=== PATIENT | male | born 1960 | race Caucasian/White ===

== ENCOUNTER 2018-01-29 06:59 | Day surgery (SDC) | payer OTHER ==
[~2018-01-29] VITALS: Ht 177.8 cm; Wt 79.5 kg
[2018-01-29] MEDS ORDERED: VENL75TA2 PO (07:05)
[2018-01-29] MEDS ORDERED: GLUCAGON FOR INJ 1 MG VIAL (J1610) IV STA (08:26)
[2018-01-29] MEDS ORDERED: EFFEXOR 150 MG PO (12:36)
--- NOTE | 2018-01-29 15:49 | CR.PDOC ---
General Date of Consultation: Jan 29, 2018 Referring Provider: Todd Ramírez M.D. Attending Physician: FORTUNATO JACOBS MD Consultation GI CONSULT NOTE Reason for consult: food impaction HPI: Mr. King is a 57 yo M with PMH of GERD presented to ER for dysphagia that started last night. He states he has had intermittent dysphagia for the past 15 years, and reportedly underwent an EGD about 10 years ago which was negative. He has been managing this symptomatically and avoiding thick foods, meats, and breads. Last night however, he was out in a restaurant and ate steak and salad, which he felt get stuck in his upper throat after the first few bites. He attempted inducing vomiting, but did not feel better after emesis. He "tried to wait it out," but symptoms persisted into this morning, for which he presented to the ER. He now has been vomiting to both solid and liquid intake, and was given glucagon and Poly tawnya in the ER to no avail. He has no other complaints besides throat pressure. Pertinent negative GI symptoms: Patient denies changes in bowel, loss of appetite, early satiety or unintentio nal weight loss. No history of hematemesis or abdominal pain. Review of Systems: GI: as stated above CVS: No chest pain, No palpitations, No leg swelling. RS: No Shortness of breath, No Wheezing, no cough IMMIGRATION PARALEGAL: No dizziness, No motor weakness, No sensory problems Hematology: No bruising, No gum bleeding, Musculoskeletal: No joint pain, ambulating well. Skin: No rash : No hematuria, No burning sensation of the urine ENT: No ear discharge/ pain, No dysphagia. Eyes: No photophobia. Jaundice Home medications: reviewed. Antithrombotic agents - none Medical h/o: As above. Surgical h/o: umbilical hernia repair Social h/o: Alcohol-frequently, ~10 drinks/week, smoking-denies, IVDA/ drugs- actively uses cocaine, no IV drugs Family h/o of GI cancers - None Prior Endoscopies: --- EGD: per pt, 10 yrs ago was negative --- Colonoscopy: n/a Exam: Vitals: reviewed General: Alert and oriented x 3, not in distress HEENT: NO pallor, no icterus. Normal oropharynx, no visible obstruction or lesion, no cervical lymph nodes. Chest: symmetric with bilateral clear air entry, CVS: S1, S2 heard, normal, no murmurs . Abdomen: non-distended, soft, nontender to palpation, no palpable masses, bowel sounds heard. Rectal exam: Deferred Extremities: no pedal edema, pulses palpable IMMIGRATION PARALEGAL: no focal motor or sensory deficits. Moves all extremities Skin: no rash. Labs: none Imaging: none Impression: -- Dysphagia with food impaction -- Differentials includes esophageal stricture, EOE vs GERD with esophagitis vs esophageal motility disorder vs esophageal web Recommendations: -- Keep patient NPO. -- Give IVF while NPO, fluids per ER -- Will perform urgent EGD today in OR with possible intubation. Benefits and risks (including bleeding, infection, perforation, pain) discussed with pt. Pt agreeable to plan and signed informed consent for EGD -- Plan to send home after procedure & PACU recovery -- Patient educated about the test results, possible differential diagnoses and All questions answered. Plan of care discussed with patient and primary team. Patient verbalized understanding and agreed with the plan. Vital Signs/I&O Vital Signs Date Time Temp Pulse Resp B/P (MAP) Pulse Ox O2 Delivery O2 Flow Rate FiO2 01/29/18 13:35 97.1 48 20 139/86 (103) 95 Room Air Allergies Coded Allergies: No Known Allergies (Verified Allergy, Unknown, 10/30/06) Home Medications Scheduled [Effexor Er 150MG Tab] , 50 MG PO DAILY, (Reported) PT HAS BEEN CUTTING ER TAB, ADVISED NOT RECOMMENDED DUE TO BEING ER GME ATTESTATION GME ATTESTATION My faculty preceptor for this patient encounter was physically present during the encounter and was fully available. All aspects of the patient interview, examination, medical decision making process, and medical care plan development were reviewed and approved by the faculty preceptor. The faculty preceptor is aware and concurs with the plan as stated in the body of this note and will attest to such by his/her cosignature. KIRA BRIDGES DO Jan 29, 2018 15:49 FORTUNATO JACOBS MD Jan 29, 2018 16:02
--- NOTE | 2018-01-29 15:49 | CR.PDOC ---
General Date of Consultation: Jan 29, 2018 Referring Provider: Todd Ramírez M.D. Attending Physician: FORTUNATO JACOBS MD Consultation Error.. Please see the other document done by Resident physician. Allergies Coded Allergies: No Known Allergies (Verified Allergy, Unknown, 10/30/06) Home Medications Scheduled [Effexor Er 150MG Tab] , 50 MG PO DAILY, (Reported) PT HAS BEEN CUTTING ER TAB, ADVISED NOT RECOMMENDED DUE TO BEING ER FORTUNATO JACOBS MD Jan 29, 2018 15:49
[2018-01-29] MEDS ORDERED: ONDANSETRON 4MG/2ML VIAL (J2405) As Ordered ONE (16:26)
[2018-01-29] MEDS ORDERED: fentaNYL 250 MCG/5 ML INJECTION (J3010) As Ordered ONE (16:26)
[2018-01-29] MEDS ORDERED: METOCLOPRAMIDE INJ 10MG/2ML VIAL (J2765) As Ordered ONE (16:26)
[2018-01-29] MEDS ORDERED: LIDOCAINE 2% INJ 100 MG/5 ML SDV (FOR ANES.) As Ordered ONE (16:26)
[2018-01-29] MEDS ORDERED: SUCCINYLCHOLINE 100 MG/5 ML SYRINGE (J0330) As Ordered ONE (16:26)
[2018-01-29] MEDS ORDERED: PROPOFOL 200 MG/20 ML VIAL As Ordered ONE (16:26)
[2018-01-29] MEDS ORDERED: MIDAZOLAM INJ 2 MG/2 ML VIAL (J2250) As Ordered ONE (16:27)
--- NOTE | 2018-01-29 16:44 | ROOR ---
Patient Name: Jeovany King Procedure Date: 01/29/2018 3:07 PM Date of : 1960 Age: 57 Room: Main OR Gender: Male Note Status: Finalized Procedure: Upper GI endoscopy Indications: Dysphagia, Removal of foreign body in the esophagus, Foreign body in the esophagus Providers: Thomas Dempsey MD Referring MD: 1. No Referring Physician 1. No Referring Physician, Admin. Requesting Provider: Medicines: Monitored Anesthesia Care Complications: No immediate complications. Procedure: Pre-Anesthesia Assessment: - Prior to the procedure, a History and Physical was performed, and patient medications and allergies were reviewed. The patient is competent. The risks and benefits of the procedure and the sedation options and risks were discussed with the patient. All questions were answered and informed consent was obtained. Patient identification and proposed procedure were verified by the physician, the nurse and the anesthesiologist in the procedure room. Mental Status Examination: alert and oriented. Airway Examination: normal oropharyngeal airway and neck mobility. Respiratory Examination: clear to auscultation. CV Examination: normal. Prophylactic Antibiotics: The patient does not require prophylactic antibiotics. Prior Anticoagulants: The patient has taken no previous anticoagulant or antiplatelet agents. ASA Grade Assessment: II - A patient with mild systemic disease. After reviewing the risks and benefits, the patient was deemed in satisfactory condition to undergo the procedure. The anesthesia plan was to use monitored anesthesia care (MAC). Immediately prior to administration of medications, the patient was re-assessed for adequacy to receive sedatives. The heart rate, respiratory rate, oxygen saturations, blood pressure, adequacy of pulmonary ventilation, and response to care were monitored throughout the procedure. The physical status of the patient was re-assessed after the procedure. The Endoscope was introduced through the mouth, and advanced to the second part of duodenum. The upper GI endoscopy was accomplished without difficulty. The patient tolerated the procedure well. Findings: Food was found in the lower third of the esophagus. Removal of food was accomplished. Mucosal changes including longitudinal furrows and white plaques were found in the entire esophagus. Biopsies were obtained from the proximal and distal esophagus with cold forceps for histology of suspected eosinophilic esophagitis. Verification of patient identification for the specimen was done by the physician and nurse using the patient's name, date and medical record number. Estimated blood loss was minimal. No gross lesions were noted in the entire examined stomach. The duodenal bulb and second portion of the duodenum were normal. Impression: - Food in the lower third of the esophagus. Removal was successful. - Esophageal mucosal changes suggestive of eosinophilic esophagitis. Biopsied. - No gross lesions in the stomach. - Normal duodenal bulb and second portion of the duodenum. Recommendation: - Patient has a contact number available for emergencies. The signs and symptoms of potential delayed complications were discussed with the patient. Return to normal activities tomorrow. Written discharge instructions were provided to the patient. - Full liquid diet for 1 day, then advance as tolerated to resume previous diet. - Continue present medications. 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 - Await pathology results. - Return to GI clinic in [facility] (address [address], [address], [place] [address]) in 4 -- 6 weeks. Please call GI clinic @ [phone] for apppointment date and time. - Return to primary care physician. Thomas Dempsey MD Thomas Dempsey MD 01/29/2018 4:44:26 PM This report has been signed electronically. Number of Addenda: 0 Note Initiated On: 01/29/2018 3:07 PM Estimated Blood Loss: Estimated blood loss was minimal.
[2018-01-29] MEDS ORDERED: LR 1,000 ML IV SCH (17:00)
[2018-01-29] MEDS ORDERED: ONDANSETRON 4MG/2ML VIAL (J2405) IV PRN (17:00)
[2018-01-29] MEDS ORDERED: HYDROMORPHONE HCL 0.5 MG/ 0.5 ML SYRINGE (J1170 PER 1) IV PRN (17:00)
[2018-01-29] MEDS ORDERED: PERCOCET 5MG/325MG TAB PO PRN (17:00)
[2018-01-29] MEDS ORDERED: fentaNYL 100 MCG/2 ML INJECTION (J3010) IV PRN (17:00)
[2018-01-29 17:35] VITALS: BP 110/78
[2018-01-30] MEDS ORDERED: PANTOPRAZOLE 40MG TAB (PROTONIX) PO SCH (09:00)
== END 2018-01-29 17:35 | disposition home or self-care (01) ==
LOC: M ED 06:59 → M SDC 15:20
PROVIDERS: ATTEND Internal Medicine Gastroenterology
DX: T18.128A Food in esophagus causing other injury, initial encounter (principal); K22.8 Other specified diseases of esophagus; R13.10 Dysphagia, unspecified; F32.9 Major depressive disorder, single episode, unspecified; X58.XXXA Exposure to other specified factors, initial encounter; Y92.89 Other specified places as the place of occurrence of the external cause; Y93.89 Activity, other specified; Y99.8 Other external cause status
CPT/HCPCS: 43239; 43247; 88305; 99284; J0330; J1610; J2250; J2405; J2765; J3010

== ENCOUNTER 2018-03-04 01:28 | Emergency (ER) | payer OTHER ==
[~2018-03-04] VITALS: Ht 177.8 cm; Wt 84.1 kg
[2018-03-04 01:28] VITALS: BP 176/82
[~2018-03-04 01:28] MED LIST: EFFEXOR 150 MG PO; VENL75TA2 PO
[2018-03-04] MEDS ORDERED: MORPHINE 10 MG/ML 1ML VIAL (J2270) IM ONE (02:15)
--- NOTE | 2018-03-04 02:31 | REPVR ---
EXAM: CT Head Without Contrast EXAM DATE/TIME: 03/04/2018 1:48 AM CLINICAL HISTORY: 57 years old, male; Pain; Headache; Headache not specified; Additional info: BUSH TECHNIQUE: Axial computed tomography images of the head/brain without contrast. All CT scans at this facility use at least one of these dose optimization techniques: automated exposure control; mA and/or kV adjustment per patient size (includes targeted exams where dose is matched to clinical indication); or iterative reconstruction. COMPARISON: CT IAC W/O CONTRAST 11/20/2012 8:00 AM FINDINGS: Brain: There are periventricular foci of hypodensity, likely representing small vessel ischemic disease in a patient this age. The acuity of the white matter disease is indeterminate. The white-padron differentiation is preserved demonstrating no acute territorial type infarct. There is mild prominence of the frontal sulci, but this is age appropriate. No acute intracranial hemorrhage is seen. No intracranial mass effect. Midline shift: There is no midline shift. Ventricles: No ventriculomegaly. Bones/joints: The calvarium demonstrates no evidence for a depressed fracture. Sinuses: Normal as visualized. No acute sinusitis. Mastoid air cells: No mastoid effusion. Soft tissues: Normal. Vasculature: There is atherosclerotic calcification of the intracranial internal carotid arteries. IMPRESSION: 1. No acute intracranial hemorrhage or acute territorial type infarct. 2. There are periventricular foci of hypodensity, likely representing small vessel ischemic disease in a patient this age. Electronically signed by: Jeovany Sutton On 03/04/2018 02:30:24 AM
== END 2018-03-04 03:28 | disposition home or self-care (01) ==
LOC: M ED 03:28
DX: R51 Headache (principal); F33.9 Major depressive disorder, recurrent, unspecified; Z79.899 Other long term (current) drug therapy
CPT/HCPCS: 70450; 82375; 85652; 96372; 99283; J2270

== ENCOUNTER → 2018-04-01 | Outpatient (CLI) | payer OTHER ==
--- NOTE | 2018-04-01 18:37 | REP ---
MAXILLOFACIAL CT WITHOUT CONTRAST: HISTORY: Acute maxillary sinusitis. A small right Andrey cell is present. The sinuses are clear. The osteomeatal units are patent. The middle and inferior nasal turbinates are partially paradoxical. There is minimal deviation of the nasal septum to the left. A large spur is present arising from the left side of the nasal septum. The nasal septum abuts the left inferior nasal turbinate. The cribriform plate, medial gupta of the orbits and optic canals are intact. The carotid canals form a segment of the posterolateral gupta of the sphenoid sinus. IMPRESSION:There is no acute or chronic sinusitis. Electronically Signed by Eagle Rojas MD 04/01/2018 06:57 P
== END ==
LOC: M RAD 17:08
PROVIDERS: ATTEND Specialist
DX: J34.2 Deviated nasal septum (principal); J34.89 Other specified disorders of nose and nasal sinuses

== ENCOUNTER 2018-07-17 17:33 | Day surgery (SDC) | payer OTHER ==
[~2018-07-17] VITALS: Ht 177.8 cm; Wt 81.8 kg
[2018-07-17] MEDS ORDERED: FAMC250T3 (17:44)
[2018-07-17] MEDS ORDERED: FLUTISP (17:44)
[2018-07-17] MEDS ORDERED: FLUT22IN (17:44)
[2018-07-17] MEDS ORDERED: DEXA5LQ (17:44)
[2018-07-17] MEDS ORDERED: MORPHINE 4 MG/ML 1ML VIAL/SYRINGE (J2270) IV ONE (18:15)
[2018-07-17] MEDS ORDERED: NS 1,000 ML IV SCH (18:15)
[2018-07-17] MEDS ORDERED: ONDANSETRON 4MG/2ML VIAL (J2405) IV ONE (18:15)
[2018-07-17 18:26] LABS: HEMATOCRIT 43.9 % (42.0-52.0); HEMOGLOBIN 14.3 g/dl (13.5-17.5); MEAN CORPUSCULAR HEMOGLOBIN 30.4 pg (27.0-33.0); MEAN CORPUSCULAR HGB CONC 32.6 g/dl (32.0-36.5); MEAN CORPUSCULAR VOLUME 93.2 fl (80.0-96.0); PLATELET COUNT, AUTOMATED 267 10^3/uL (150-450); RED BLOOD COUNT 4.71 10^6/uL (4.30-6.10); WHITE BLOOD COUNT 6.6 10^3/uL (4.0-10.0)
[2018-07-17 18:31] LABS: BLOOD UREA NITROGEN 28 MG/DL (7-18); CALCIUM LEVEL 8.9 MG/DL (8.8-10.2); CARBON DIOXIDE LEVEL 29 MEQ/L (21-32); CHLORIDE LEVEL 107 MEQ/L (98-107); CREATININE FOR GFR 1.21 MG/DL (0.70-1.30); GLOMERULAR FILTRATION RATE > 60.0 (>49); GLUCOSE, FASTING 110 MG/DL (70-100); POTASSIUM SERUM 4.3 MEQ/L (3.5-5.1); SODIUM LEVEL 141 MEQ/L (136-145)
[2018-07-17 18:38] LABS: INR 0.97
[2018-07-17] MEDS ORDERED: ISOVUE-370 76% 100ML VIAL (Q9967) As Ordered ONE (18:40)
--- NOTE | 2018-07-17 19:15 | REPVR ---
EXAM: CT Chest With Contrast EXAM DATE/TIME: 07/17/2018 6:46 PM CLINICAL HISTORY: 58 years old, male; Signs and symptoms; Other: Vomiting blood; Additional info: Esophogeal tear TECHNIQUE: Imaging protocol: Axial computed tomography images of the chest with intravenous contrast. Coronal and sagittal reformatted images were created and reviewed. 3D rendering: MIP reconstructed images were created and reviewed. Radiation optimization: All CT scans at this facility use at least one of these dose optimization techniques: automated exposure control; mA and/or kV adjustment per patient size (includes targeted exams where dose is matched to clinical indication); or iterative reconstruction. Contrast material: ISOVUE 370; Contrast volume: 75 ml; Contrast route: IV; COMPARISON: No relevant prior studies available. FINDINGS: Lungs: Sub-solid nodule anterior basal segment left lower lobe measuring 6.2 mm (series 2 amount image 56). 2 mm pleural-based nodule anterior segment left upper lobe (series 2 image 51). 3.3 mm pleural-based sub-solid nodule anterior segment right upper lobe (series 2 image 44). Esophagus: the esophagus is dilated and contains an air-fluid level. Solid appearing debris noted within the distal esophagus extending through the gastroesophageal junction Pleural space: See Lungs Finding. Heart: Normal. No cardiomegaly. No pericardial effusion. Mediastinum: Moderate size sliding hiatal hernia. Debris noted within the distal esophagus. There is no subcutaneous emphysema noted within the mediastinum to suggest esophageal rupture. Aorta: Normal. No aortic aneurysm. Lymph nodes: Unremarkable. No enlarged lymph nodes. Bones/joints: There are healed or healing rib fractures of the left posterolateral seventh through ninth ribs Soft tissues: Unremarkable. Liver: The liver is low in density. 1 cm area of hypervascularity noted in the medial segment of the left lobe. Kidneys and ureters: Left-sided hydronephrosis versus parapelvic cysts. IMPRESSION: 1. No evidence of subcutaneous emphysema in the mediastinum. No CT findings to suggest esophageal rupture. 2. Air-fluid level noted within the esophagus with hiatal hernia. There is evidence of gastroesophageal reflux. 3. Sub-solid pulmonary nodules bilaterally.Recommend CT at 3-6 months. If stable, then consider CT at 2 years and 4 years. (Chrystal et al., Fleischner Society, 2017) 4. Healed or healing rib fractures of the left posterolateral seventh through ninth ribs 5. 1 cm area of hypervascularity in the medial segment left lobe of the liver. Does not characterize fully. This could represent hemangioma, adenoma or other hypervascular neoplasm. MR might be considered for definitive characterization Electronically signed by: Olive Trinidad On 07/17/2018 19:15:04 PM
[2018-07-17] MEDS ORDERED: MORPHINE 2 MG/ML 1ML SYRINGE (J2270) IV ONE (20:00)
--- NOTE | 2018-07-17 20:17 | ECGEPIP ---
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
[2018-07-17] MEDS ORDERED: SUCCINYLCHOLINE 100 MG/5 ML SYRINGE (J0330) As Ordered ONE (22:00)
[2018-07-17] MEDS ORDERED: PROPOFOL 200 MG/20 ML VIAL As Ordered ONE (22:00)
[2018-07-17] MEDS ORDERED: fentaNYL 100 MCG/2 ML INJECTION (J3010) As Ordered ONE (22:00)
[2018-07-17] MEDS ORDERED: LIDOCAINE 2% INJ 100 MG/5 ML SDV (FOR ANES.) As Ordered ONE (22:00)
[2018-07-17] MEDS ORDERED: MIDAZOLAM INJ 2 MG/2 ML VIAL (J2250) As Ordered ONE (22:00)
[2018-07-17] MEDS ORDERED: dexameTHASONE 4 MG/ML 1ML VIAL (J1100) As Ordered ONE (22:00)
[2018-07-17] MEDS ORDERED: FLON1SPR (22:03)
[2018-07-17] MEDS ORDERED: VENL75CA2 PO (22:03)
[2018-07-17] MEDS ORDERED: FAMC250T3 PO (22:03)
[2018-07-17] MEDS ORDERED: FLUT22IN INH (22:03)
[2018-07-17] MEDS ORDERED: ePHEDrine SULFATE 25 MG/5 ML(5MG/ML) SYRINGE As Ordered ONE (22:15)
--- NOTE | 2018-07-17 22:44 | ROOR ---
Patient Name: Jeovany King Procedure Date: 07/17/2018 10:28 PM Date of : 1960 Age: 58 Gender: Male Note Status: Finalized Procedure: Upper GI endoscopy Indications: Foreign body in the esophagus, Hematemesis, Eosinophilic esophagitis Providers: Facundo BLANKENSHIP MD Referring MD: 3. Emergency Dept 3. Emergency Dept, [facility] BARTH NP, NONI HO MD Requesting Provider: Medicines: Monitored Anesthesia Care Complications: No immediate complications. Procedure: Pre-Anesthesia Assessment: - The heart rate, respiratory rate, oxygen saturations, blood pressure, adequacy of pulmonary ventilation, and response to care were monitored throughout the procedure. The Endoscope was introduced through the mouth, and advanced to the second part of duodenum. The upper GI endoscopy was accomplished without difficulty. The patient tolerated the procedure well. Findings: Food was found in the middle third of the esophagus and in the lower third of the esophagus. Removal of food was accomplished. A non-bleeding mucosal tear that was pre-existing (pre-procedure) was found in the middle third of the esophagus. This measured 20 mm in length. Mucosal changes including ringed esophagus and longitudinal furrows were found in the entire esophagus. Small Hiatal Hernia. The entire examined stomach was normal. The examined duodenum was normal. Impression: - Food in the middle third of the esophagus and in the lower third of the esophagus. Removal was successful. - Mucosal tear in the middle third of the esophagus. - Esophageal mucosal changes consistent with eosinophilic esophagitis. - Small Hiatal Hernia. - Normal stomach. - Normal examined duodenum. Recommendation: - Observe patient's clinical course following today's procedure with therapeutic intervention. - Use Prilosec (omeprazole) 40 mg PO BID. - Use FloVent-2 puffs by mouth twice a day-dry swallow. do not eat/drink for 30 minutes after. - Full liquid diet for 24 hrs, then soft diet. - The most common dietary causes for eosinophilic esophagitis are Dairy, Eggs, Wheat.--avoid these. - Follow up with Dr Dempsey next available appointment for further adjustments of medications. Office will call you in the next few days to schedule a follow up. Facundo Blankenship MD Facundo BLANKENSHIP MD 07/17/2018 10:43:22 PM Electronically signed by Facundo BLANKENSHIP MD Number of Addenda: 0 Note Initiated On: 07/17/2018 10:28 PM Estimated Blood Loss: Estimated blood loss: none.
[2018-07-17] MEDS ORDERED: HYDROMORPHONE HCL 0.5 MG/ 0.5 ML SYRINGE (J1170 PER 1) IV PRN (23:00)
[2018-07-17] MEDS ORDERED: fentaNYL 100 MCG/2 ML INJECTION (J3010) IV PRN (23:00)
[2018-07-17] MEDS ORDERED: LR 1,000 ML IV SCH (23:00)
[2018-07-17] MEDS ORDERED: ONDANSETRON 4MG/2ML VIAL (J2405) IV PRN (23:00)
[2018-07-17 23:40] VITALS: BP 134/79
--- NOTE | 2018-07-18 06:44 | ED PDOC ---
Post-Departure Follow-Up dr kimball faxed formal report of ct chest for fu Pati Miranda MD Jul 18, 2018 06:44
== END 2018-07-17 23:45 | disposition home or self-care (01) ==
LOC: M ED 17:33 → M SDC 21:08
PROVIDERS: ATTEND Internal Medicine Gastroenterology
DX: T18.128A Food in esophagus causing other injury, initial encounter (principal); K22.8 Other specified diseases of esophagus; K92.0 Hematemesis; K20.0 Eosinophilic esophagitis; F32.9 Major depressive disorder, single episode, unspecified; Z79.899 Other long term (current) drug therapy; Y92.008 Other place in unspecified non-institutional (private) residence as the place of occurrence of the external cause
CPT/HCPCS: 43247; 71260; 80048; 85027; 85610; 93005; 96361; 96374; 96375; 96376; 99285; J0330; J1100; J2250; J2270; J2405; J3010; Q9967

== ENCOUNTER → 2018-09-06 | Outpatient (CLI) | payer OTHER ==
[~2018-09-06] MED LIST changes: +DEXA5LQ; +E-Z-GAS II EFFERVESCENT PACKET (SODIUM BICARB./CITRIC ACID/SIMETHICONE) As Ordered ONE; +E-Z-HD 98% w/w 340GM SUSP BTL As Ordered ONE; +E-Z-PAQUE 96% w/w SUSP 176GM BTL As Ordered ONE; +FAMC250T3; +FAMC250T3 PO; +FLON1SPR; +FLUT22IN; +FLUT22IN INH; +FLUTISP; +VENL75CA2 PO
--- NOTE | 2018-09-10 17:29 | REP ---
Esophagram The procedure was performed under the direct supervision of Dr. Ortiz. The images were reviewed with Dr. Ortiz. A single view PA chest x-ray is submitted as a forward air controller/air officer film. The superior mediastinal structures are midline. The heart size is within normal limits. The lungs are clear. There are old healed rib fractures on the left. Liquid barium and gas producing granules were given in the erect position as well as liquid barium in the prone oblique positions in order to perform a double contrast esophagram examination. The oral and pharyngeal stages of deglutition are unremarkable. There are esophageal transport there is a feline esophagus appearance. There is a sliding type hiatal hernia. There is gastroesophageal reflux demonstrated to the level of the thoracic inlet. These findings are consistent with early esophagitis. There is no mariah ulcer identified. There is no stricture identified. 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 There is a sliding type hiatal hernia. There is gastroesophageal reflux demonstrated to the level of the thoracic inlet. These findings are consistent with early esophagitis. There is no mariah ulcer identified. 0.8 minutes of fluoro time was utilized for this procedure. Reviewed by JAMES Mayers 09/06/2018 04:05 P Electronically Signed by Jesse Ortiz MD 09/10/2018 05:20 P
== END ==
LOC: M RAD 07:11
PROVIDERS: ATTEND Internal Medicine Gastroenterology
DX: K20.0 Eosinophilic esophagitis (principal)

== ENCOUNTER → 2018-10-25 | Outpatient (CLI) | payer OTHER ==
[~2018-10-25] MED LIST changes: -E-Z-GAS II EFFERVESCENT PACKET (SODIUM BICARB./CITRIC ACID/SIMETHICONE) As Ordered ONE; -E-Z-HD 98% w/w 340GM SUSP BTL As Ordered ONE; -E-Z-PAQUE 96% w/w SUSP 176GM BTL As Ordered ONE; +ISOVUE-370 76% 100ML VIAL (Q9967) As Ordered ONE
--- NOTE | 2018-10-25 19:13 | REP ---
HISTORY: History of pulmonary nodule. COMPARISON: 07/17/2018 CONTRAST: 100 mL Isovue-370. The mediastinum and pulmonary declan are stable showing no evidence of a mass or adenopathy. The air fluid level seen previously in the esophagus has abated. There are no pleural or pericardial effusions. The imaged upper abdomen and imaged osseous structures are unchanged and again seen to be within normal limits for the patient's age. There is no intrathoracic vascular abnormality. There is excellent visualization of the pulmonary arterial vasculature and showing no evidence of an abnormal focal filling defect that would be considered consistent with a pulmonary embolus. The thoracic aorta is also within normal limits. Once again, note is made of multiple left-sided rib fractures, status quo. Evaluation of the lung wood again shows a 6 mm sized nodule in the left lower lobe. This is unchanged. Other tiny nodules seen on the prior exam are stable. No new abnormal nodules, masses or opacities have developed. IMPRESSION: There is a stable 6 mm sized nodule in the left lower lobe. According to the revised Lyric Society criteria, this nodule can now be categorized as a category [address]up. No evidence of an intrathoracic vascular abnormality as described above. Other findings as described above. Electronically Signed by Adama Wetzel DO 10/25/2018 07:41 P
== END ==
LOC: M RAD 17:18
PROVIDERS: ATTEND Family Medicine
DX: R91.1 Solitary pulmonary nodule (principal)
CPT/HCPCS: 71275; Q9967

== ENCOUNTER → 2019-02-04 | Outpatient (REF) | payer OTHER ==
[~2019-02-04] MED LIST changes: -ISOVUE-370 76% 100ML VIAL (Q9967) As Ordered ONE
[2019-02-04 13:24] LABS: APPEARANCE, URINE CLEAR (CLEAR); BACTERIA, URINE AUTO NEGATIVE (NEGATIVE); BILIRUBIN, URINE AUTO NEGATIVE (NEGATIVE); BLOOD, URINE BLOOD NEGATIVE (NEGATIVE); COLOR, URINE YELLOW (YELLOW); GLUCOSE, URINE (UA) AUTO NEGATIVE (NEGATIVE); KETONE, URINE AUTO NEGATIVE (NEGATIVE); LEUKOCYTE ESTERASE, URINE AUTO NEGATIVE (NEGATIVE); NITRITE, URINE AUTO NEGATIVE (NEGATIVE); PROTEIN, URINE AUTO NEGATIVE (NEGATIVE); RBC, URINE AUTO 0 /HPF (0-3); SPECIFIC GRAVITY URINE AUTO 1.025 (1.002-1.035); SQUAMOUS EPITHELIAL CELL UR AU 0 /HPF (0-6); UROBILINOGEN, URINE AUTO 0.2 mg/dL (0.0-2.0); WBC, URINE AUTO 0 /HPF (0-3)
== END ==
LOC: M SMT 13:13
PROVIDERS: ATTEND Nurse Practitioner Women's Health
DX: N40.0 Benign prostatic hyperplasia without lower urinary tract symptoms (principal)

== ENCOUNTER → 2019-07-24 | Outpatient (CLI) | payer OTHER ==
[~2019-07-24] MED LIST changes: +FAMC250T; +FAMC250T PO; -FAMC250T3; -FAMC250T3 PO; +METHACHOLINE KIT (J7674) INH ONE; +OMEP40CA97 PO; +OXYB10TA23 PO
--- NOTE | 2019-07-24 08:34 | PFTRPT ---
Visit Date: 07/24/2019 Referring Doctor: Yobany Valente D.O. Height: 70.00 Inches Weight: 178.00 Lbs BSA: 1.99 Diagnosis: R06.02 Study of excellent technical quality. Under protocol, methacholine was administered. Even after a maximal dose of 25 mg (188.875 CDUs), no provocation dose was ever achieved. IMPRESSION: Negative methacholine challenge study. MTDD
== END ==
LOC: M CARPUL 07:49
PROVIDERS: ATTEND Internal Medicine Pulmonary Disease
DX: R06.02 Shortness of breath (principal)
CPT/HCPCS: 94070; J7674

== ENCOUNTER 2019-10-20 12:12 | Day surgery (SDC) | payer OTHER ==
[~2019-10-20] VITALS: Ht 177.8 cm; Wt 80.7 kg
[~2019-10-20 12:12] MED LIST changes: -METHACHOLINE KIT (J7674) INH ONE
[2019-10-20] MEDS: HYDROMORPHONE HCL 0.5 MG/ 0.5 ML SYRINGE (J1170 PER 1) IV PRN ×2 (13:12→14:40)
--- NOTE | 2019-10-20 13:56 | REPVR ---
PROCEDURE INFORMATION: Exam: XR Left Forearm Exam date and time: 10/20/2019 1:20 PM Age: 59 years old Clinical indication: Pain; Lower or forearm; Left; Additional info: Injury TECHNIQUE: Imaging protocol: XR Left forearm. Views: One-view. COMPARISON: No relevant prior studies available. FINDINGS: Bones/joints: No fracture of the radius or ulna. There is an olecranon spur. Soft tissues: Limited to a single portable lateral view. IMPRESSION: No evidence of fracture on single view. Electronically signed by: Sivakumar Hinojosa On 10/20/2019 13:55:49 PM
[2019-10-20] MEDS ORDERED: ceFAZolin SOD 2 GM in D5W MINI-BAG PLUS 50 ML IV ONE (16:45)
[2019-10-20] MEDS: LR 1,000 ML IV SCH (17:06)
[2019-10-20] MEDS: MORPHINE 2 MG/ML 1ML VIAL (J2270) IV PRN ×2 (17:07→18:30)
[2019-10-20] MEDS ORDERED: propofoL 200 MG/20 ML VIAL As Ordered ONE (17:10)
[2019-10-20] MEDS ORDERED: LIDOCAINE 2% 100MG/5ML SDV (FOR ANES.) As Ordered ONE (17:10)
[2019-10-20] MEDS ORDERED: fentaNYL 100 MCG/2 ML INJECTION (J3010) As Ordered ONE ×2 (17:10→21:31)
[2019-10-20] MEDS ORDERED: dexameTHASONE 4 MG/ML 1ML VIAL (J1100 PER 1MG) As Ordered ONE (17:11)
[2019-10-20] MEDS ORDERED: ONDANSETRON 4MG/2ML VIAL As Ordered ONE (17:11)
[2019-10-20] MEDS ORDERED: MIDAZOLAM INJ 2MG/2ML VIAL (J2250 PER 1MG) As Ordered ONE (17:11)
[2019-10-20] MEDS ORDERED: MORPHINE 2 MG/ML 1ML VIAL (J2270) As Ordered ONE (18:26)
[2019-10-20] MEDS ORDERED: ePHEDrine SULFATE 25 MG/5 ML(5MG/ML) SYRINGE As Ordered ONE (20:00)
[2019-10-20] MEDS ORDERED: flumazeniL 0.5 MG/5 ML VIAL As Ordered ONE (21:05)
[2019-10-20] MEDS ORDERED: NALOXONE INJ 0.4MG/1ML VIAL (J2310 PER 1MG) As Ordered ONE (21:18)
[2019-10-20] MEDS ORDERED: NORCO, ANEXSIA 5/325MG TABLET (HYDROcodone/ACETAMINOPHEN) PO PRN (21:30)
[2019-10-20] MEDS ORDERED: MORPHINE 2 MG/ML 1ML VIAL (J2270) IV PRN (21:30)
[2019-10-20] MEDS: PERCOCET 5MG/325MG TAB PO PRN ×2 (21:30→22:01)
[2019-10-20] MEDS ORDERED: ACETAMINOPHEN TAB 650MG DOSE (2X325MG) PO PRN (21:30)
[2019-10-20] MEDS: fentaNYL 100 MCG/2 ML INJECTION (J3010) IV PRN ×4 (21:30→21:45)
[2019-10-20] MEDS ORDERED: PERCOCET 5MG/325MG TAB As Ordered ONE (21:31)
[2019-10-20] MEDS ORDERED: LR 1,000 ML IV SCH (21:45)
[2019-10-20] MEDS ORDERED: ONDANSETRON 4MG/2ML VIAL IV PRN (21:45)
[2019-10-20] MEDS ORDERED: METOCLOPRAMIDE INJ 10MG/2ML VIAL (J2765 PER 1) IV PRN (21:45)
[2019-10-20 22:15] VITALS: BP 142/84
[2019-10-20 22:45] VITALS: BP 139/83
[2019-10-20 23:15] VITALS: BP 132/82
[2019-10-21 00:15] VITALS: BP 132/79
[2019-10-21 01:15] VITALS: BP 115/69
[2019-10-21 02:15] VITALS: BP 111/69
[2019-10-21] MEDS: ceFAZolin SOD 2 GM in IV 1 EA IV SCH ×2 (02:39→10:00)
[2019-10-21] MEDS: LR 1,000 ML IV SCH (02:39)
[2019-10-21 03:15] VITALS: BP 119/74
[2019-10-21 06:00] VITALS: BP 103/70
[2019-10-21] MEDS ORDERED: OMEPRAZOLE 20 MG CAP PO SCH (09:00)
[2019-10-21] MEDS ORDERED: VENLAFAXINE **XR** 75MG CAPSULE PO SCH (09:00)
[2019-10-21] MEDS ORDERED: oxyBUTYnin *DITROPAN XL* 5 MG TABCR PO SCH (09:00)
[2019-10-21] MEDS ORDERED: BACT800T5 PO (10:58)
--- NOTE | 2019-10-26 09:56 | IPN ---
DATE: 10/20/2019 HISTORY: The patient was brought in as a surgical daycare patient yesterday for an extensive flap laceration of the left proximal forearm, sustained in an accident when a tree limb fell from a height onto his arm. He underwent irrigation, debridement and closure yesterday. PHYSICAL EXAMINATION: Vital signs: Vital signs show that he has been afebrile with pulse in the 50s to low 60s and a normal blood pressure. Intake and output shows that he has tolerated a diet well. He has excellent urine output. EXTREMITIES: He has a bulky bandage on his left forearm composed of Kerlix and held in place with Coban. There is perhaps a little staining on the posterior aspect of the dressing. He reports that he is much more comfortable today. He has been up ambulating and is moving the arm well. IMPRESSION: The patient has an extensive laceration of the forearm on the left which was quite contaminated at the time of admission. This was all washed with the pulse sanitation worker and he has been continued on Ancef postop. PLAN: He will be discharged home today. I advised him that I would like to leave the dressing on until tomorrow and have him follow up in my office then for a dressing change. He does have a small drain in the wound which could be removed then. I will give him a prescription for Bactrim Double Strength tablets, to take one tablet twice a day for 5 days for some initial antibiotic coverage. He was counseled to keep the bandage clean and dry. He should keep his arm elevated as much as possible. We discussed pain medication and he requested a few pain pills and I will phone in a prescription for ten Collins tablets and otherwise encouraged him to use [id number] medications for the most part. I will see him tomorrow afternoon in the office at 2:30. ASHLEY
--- NOTE | 2019-12-16 07:50 | RO ---
DATE OF OPERATION: 10/20/2019 PREOPERATIVE DIAGNOSIS: Large contaminated flap laceration left forearm. POSTOPERATIVE DIAGNOSIS: Large contaminated flap laceration left forearm. PROCEDURE PERFORMED: Irrigation and debridement and closure of a 20 cm distal based flap laceration of the left forearm. SURGEON: Michael Cruz MD ANESTHESIA: General. 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 They had prepared the tree to come down and he was standing beneath it when a large apparently rotten limb broke off higher up in the tree and fell some 30 to 40 feet and struck him on the dorsal radial aspect of the left forearm creating a large flap laceration. This was contaminated with debris. He came to the emergency department and he is now for irrigation and debridement and closure of the wound under anesthesia. OPERATIVE PROCEDURE: The patient was brought to the operating room and placed on the table in a supine position. He was placed under anesthesia. The bandage was removed from the left upper extremity and the left upper extremity was prepped and draped in a sterile fashion. Inspection of the arm revealed an approximately 20 cm long sharply angulated laceration creating a large distal based flap on the dorsal radial aspect of the forearm. The flap was opened up and there were multiple little fragments of debris noted within the subcutaneous tissues and on the inner surface of the flap. The power lavage insurance sales representative was used to wash the wound with sterile saline. Several small fragments of debris were removed sharply. Small bleeding points were identified and controlled with limited use of the cautery. The wound was re-irrigated and I ensured that there was no area of undermining around the edges of the wound that could contain retained debris. Final inspection showed a very clean wound with no evidence of any retained material. The flap measured 11 cm down the volar side and 9 cm down the more dorsal side. There was a small area perhaps several cm wide at the tip of the flap more proximally where there appeared to be partial thickness loss of skin over an area perhaps 3 to 4 square cm in size. The more volar portion of the flap was dusky along the edge. This extended back about a cm from the edge of the flap and over a distance of perhaps 6 to 7 cm of the edge. The flap was stretched out over the underlying open wound and several fixing sutures of 4-0 nylon were placed along the edge and at the tip to hold the flap out fully. Multiple simple sutures of 5-0 nylon were then placed along the edge to close the skin edges around the periphery of the flap. Anticipating some drainage, I placed a segment of inch Yola drain beneath the flap exiting towards the tip of the flap. This was sutured to the surrounding skin with a nylon suture as well. Once the flap had been approximated, the wound was covered with a dressing of Xeroform gauze over the open areas and a bulky bandage of fluff gauze was placed, held in place with Coban self adhering wrap. The patient tolerated the procedure well without apparent complications. He was awakened in the operating room and extubated and transported to the recovery room in stable condition. ASHLEY
== END 2019-10-21 12:00 | disposition home or self-care (01) ==
LOC: M ED 12:12 → M SDC 17:18 → M MS5PR 22:06 → M SDC 10-21 12:00
PROVIDERS: ATTEND Surgery
DX: S51.822A Laceration with foreign body of left forearm, initial encounter (principal); W20.8XXA Other cause of strike by thrown, projected or falling object, initial encounter; Y92.89 Other specified places as the place of occurrence of the external cause; Y93.H9 Activity, other involving exterior property and land maintenance, building and construction; Y99.0 Civilian activity done for income or pay; F32.9 Major depressive disorder, single episode, unspecified
CPT/HCPCS: 13121; 13122; 73090; 96361; 96365; 96375; 96376; 99284; J0690; J1100; J1170; J2250; J2270; J2310; J2405; J3010; U0002

== ENCOUNTER → 2019-10-30 | Outpatient (CLI) | payer OTHER ==
[~2019-10-30] MED LIST changes: +ASPI-525 PO; +BACT800T5 PO
== END ==
LOC: M LABSMTC 10:19
PROVIDERS: ATTEND Anesthesiology
DX: Z01.812 Encounter for preprocedural laboratory examination (principal); Z20.828 Contact with and (suspected) exposure to other viral communicable diseases
CPT/HCPCS: C9803; U0003

== ENCOUNTER 2019-11-04 09:11 | Day surgery (SDC) | payer OTHER ==
[~2019-11-04] VITALS: Ht 177.8 cm; Wt 78.5 kg
[~2019-11-04 09:11] MED LIST changes: -ASPI-525 PO; +NS 1,000 ML IV ONE
[2019-11-04] MEDS ORDERED: propofoL 200 MG/20 ML VIAL As Ordered ONE ×2 (10:09→10:35)
[2019-11-04] MEDS ORDERED: LIDOCAINE 2% 100MG/5ML SDV (FOR ANES.) As Ordered ONE (10:09)
--- NOTE | 2019-11-04 11:12 | ROOR ---
Patient Name: Jeovany King Procedure Date: 11/04/2019 10:16 AM Date of : 1960 Age: 59 Room: [facility] Gender: Male Note Status: Finalized Procedure: Upper GI endoscopy Indications: Dysphagia Providers: Thomas Dempsey MD Referring MD: NONI HO MD Requesting Provider: Medicines: Monitored Anesthesia Care Complications: No immediate complications. Procedure: Pre-Anesthesia Assessment: - Prior to the procedure, a History and Physical was performed, and patient medications and allergies were reviewed. The patient is competent. The risks and benefits of the procedure and the sedation options and risks were discussed with the patient. All questions were answered and informed consent was obtained. Patient identification and proposed procedure were verified by the physician, the nurse and the anesthesiologist in the procedure room. Mental Status Examination: alert and oriented. Airway Examination: normal oropharyngeal airway and neck mobility. Respiratory Examination: clear to auscultation. CV Examination: normal. Prophylactic Antibiotics: The patient does not require prophylactic antibiotics. Prior Anticoagulants: The patient has taken no previous anticoagulant or antiplatelet agents. ASA Grade Assessment: II - A patient with mild systemic disease. After reviewing the risks and benefits, the patient was deemed in satisfactory condition to undergo the procedure. The anesthesia plan was to use monitored anesthesia care (MAC). Immediately prior to administration of medications, the patient was re-assessed for adequacy to receive sedatives. The heart rate, respiratory rate, oxygen saturations, blood pressure, adequacy of pulmonary ventilation, and response to care were monitored throughout the procedure. The physical status of the patient was re-assessed after the procedure. The Endoscope was introduced through the mouth, and advanced to the second part of duodenum. The upper GI endoscopy was accomplished without difficulty. The patient tolerated the procedure well. Findings: Mucosal changes including ringed esophagus and white plaques, schatzki ring were found in the middle third of the esophagus and in the lower third of the esophagus. Biopsies were obtained from the proximal and distal esophagus with cold forceps for histology of suspected eosinophilic esophagitis. Verification of patient identification for the specimen was done by the physician and nurse using the patient's name, date and medical record number. Estimated blood loss was minimal. The Z-line was regular and was found 42 cm from the incisors. Scattered mild inflammation characterized by erosions and granularity was found in the gastric antrum. Biopsies were taken with a cold forceps for histology. Biopsies were taken with a cold forceps for Helicobacter pylori testing. The duodenal bulb, second portion of the duodenum and area of the papilla were normal. Impression: - Esophageal mucosal changes suggestive of eosinophilic esophagitis. Biopsied. - Z-line regular, 42 cm from the incisors. - Gastritis. Biopsied. - Normal duodenal bulb, second portion of the duodenum and area of the papilla. Recommendation: - Patient has a contact number available for emergencies. The signs and symptoms of potential delayed complications were discussed with the patient. Return to normal activities tomorrow. Written discharge instructions were provided to the patient. - Resume previous diet. - Avoid the food allergens. Follow Six Food Elimination Diet ( Avoid -- milk, soy, eggs, wheat, peanuts/tree nuts, and seafood), until allergy testing is done. - Continue present medications. - Await pathology results. - Return to GI clinic in [facility] (address [address], [address], [place] [address]) in 4 -- 6 weeks. Please call GI clinic @ [phone] for apppointment date and time. - Return to primary care physician. Thomas Dempsey MD Thomas Dempsey MD 11/04/2019 11:12:05 AM Electronically signed by Thomas Dempsey MD Number of Addenda: 0 Note Initiated On: 11/04/2019 10:16 AM Estimated Blood Loss: Estimated blood loss was minimal.
--- NOTE | 2019-11-04 11:27 | ROOR ---
Patient Name: Jeovany King Procedure Date: 11/04/2019 10:17 AM Date of : 1960 Age: 59 Room: [facility] Gender: Male Note Status: Finalized Procedure: Colonoscopy Indications: Screening for colorectal malignant neoplasm Providers: Thomas Dempsey MD Referring MD: NONI HO MD Requesting Provider: Medicines: Monitored Anesthesia Care Complications: No immediate complications. Procedure: Pre-Anesthesia Assessment: - Prior to the procedure, a History and Physical was performed, and patient medications and allergies were reviewed. The patient is competent. The risks and benefits of the procedure and the sedation options and risks were discussed with the patient. All questions were answered and informed consent was obtained. Patient identification and proposed procedure were verified by the physician, the nurse and the anesthesiologist in the procedure room. Mental Status Examination: alert and oriented. Airway Examination: normal oropharyngeal airway and neck mobility. Respiratory Examination: clear to auscultation. CV Examination: normal. Prophylactic Antibiotics: The patient does not require prophylactic antibiotics. Prior Anticoagulants: The patient has taken no previous anticoagulant or antiplatelet agents. ASA Grade Assessment: II - A patient with mild systemic disease. After reviewing the risks and benefits, the patient was deemed in satisfactory condition to undergo the procedure. The anesthesia plan was to use monitored anesthesia care (MAC). Immediately prior to administration of medications, the patient was re-assessed for adequacy to receive sedatives. The heart rate, respiratory rate, oxygen saturations, blood pressure, adequacy of pulmonary ventilation, and response to care were monitored throughout the procedure. The physical status of the patient was re-assessed after the procedure. The Colonoscope was introduced through the anus and advanced to the terminal ileum, with identification of the appendiceal orifice and IC valve. The colonoscopy was performed without difficulty. The patient tolerated the procedure well. The quality of the bowel preparation was good. The terminal ileum, ileocecal valve, appendiceal orifice, and rectum were photographed. Scope insertion time was 3 minutes. Scope withdrawal time was 9 minutes. The total duration of the procedure was 12 minutes. Findings: The perianal and digital rectal examinations were normal. The terminal ileum appeared normal. Three sessile polyps were found in the transverse colon, ascending colon and ileocecal valve. The polyps were 5 to 8 mm in size. These polyps were removed with a cold snare. Resection and retrieval were complete. Verification of patient identification for the specimen was done by the physician and nurse using the patient's name, date and medical record number. Estimated blood loss was minimal. Multiple medium-mouthed diverticula were found in the sigmoid colon and descending colon. There was no evidence of diverticular bleeding. Non-bleeding external and internal hemorrhoids were found during retroflexion. The hemorrhoids were medium-sized. Impression: - The examined portion of the ileum was normal. - Three 5 to 8 mm polyps in the transverse colon, in the ascending colon and at the ileocecal valve, removed with a cold snare. Resected and retrieved. - Mild diverticulosis in the sigmoid colon and in the descending colon. There was no evidence of diverticular bleeding. - Non-bleeding external and internal hemorrhoids. Recommendation: - Patient has a contact number available for emergencies. The signs and symptoms of potential delayed complications were discussed with the patient. Return to normal activities tomorrow. Written discharge instructions were provided to the patient. - High fiber diet. - Continue present medications. - Await pathology results. - Repeat colonoscopy in 3 - 5 years for surveillance of multiple polyps. - Telephone GI clinic for pathology results in 2 weeks. - Return to primary care physician. Thomas Dempsey MD Thomas Dempsey MD 11/04/2019 11:27:21 AM Electronically signed by Thomas Dempsey MD Number of Addenda: 0 Note Initiated On: 11/04/2019 10:17 AM Estimated Blood Loss: Estimated blood loss was minimal.
[2019-11-04 11:30] VITALS: BP 137/89
== END 2019-11-04 11:51 | disposition home or self-care (01) ==
LOC: M OPP 09:11
PROVIDERS: ATTEND Internal Medicine Gastroenterology
DX: Z12.11 Encounter for screening for malignant neoplasm of colon (principal); K63.5 Polyp of colon; K57.30 Diverticulosis of large intestine without perforation or abscess without bleeding; K64.8 Other hemorrhoids; K22.8 Other specified diseases of esophagus; K29.70 Gastritis, unspecified, without bleeding; R13.10 Dysphagia, unspecified; Z79.899 Other long term (current) drug therapy

== ENCOUNTER → 2019-11-10 | Outpatient (CLI) | payer OTHER ==
[~2019-11-10] MED LIST changes: +ASPI-525 PO; -NS 1,000 ML IV ONE
--- NOTE | 2019-11-19 14:11 | REP ---
CT CHEST WITHOUT CONTRAST HISTORY: Solitary pulmonary nodule. COMPARISON: Prior chest CT studies from 07/17/2018 and 10/25/2018. FINDINGS: Preliminary digital motors and controls tester radiograph is unremarkable. A 5.4 mm noncalcified pulmonary nodule is visible in the left lower lobe on Page 56 of 128 in Series 201 of todays study. This is unchanged from the 07/17/2018 prior study, 15 month interval. No other pulmonary nodule is appreciated. Lung wood are otherwise clear. Vascular calcification is seen in the left and right coronary artery distribution as before. Old healed rib fractures are noted on the left. There is mild diffuse fatty infiltration of the liver. Areas of fat-sparing are seen near the gallbladder. Parapelvic cyst formation is seen in the upper pole of the left kidney unchanged. No mediastinal mass or adenopathy is seen. No pleural or pericardial effusion is seen. IMPRESSION: Left lower lobe 5.4 mm noncalcified pulmonary nodule is stable in the 15 month interval since the 07/17/[address] study. Consider one year follow-up chest CT. MTDD
== END ==
LOC: M RAD 07:06
PROVIDERS: ATTEND Internal Medicine Pulmonary Disease
DX: R91.1 Solitary pulmonary nodule (principal)

== ENCOUNTER 2019-12-02 11:51 | Emergency (ER) | payer OTHER ==
[~2019-12-02] VITALS: Ht 177.8 cm; Wt 86.3 kg
[~2019-12-02 11:51] MED LIST changes: -ASPI-525 PO
[2019-12-02] MEDS ORDERED: NITROGLYCERIN 0.4 MG SUBL TABLET SL PRN (12:15)
[2019-12-02] MEDS ORDERED: NS 500 ML IV ONE (12:15)
[2019-12-02] MEDS ORDERED: ASPIRIN 81 MG CHEW TABLET PO ONE (12:15)
--- NOTE | 2019-12-02 12:29 | REPVR ---
PROCEDURE INFORMATION: Exam: XR Chest, 1 View Exam date and time: 12/02/2019 12:19 PM Age: 59 years old Clinical indication: Chest pain; Type not specified TECHNIQUE: Imaging protocol: XR of the chest Views: 1 view. COMPARISON: CT Chest without contrast 11/10/2019 7:20 AM FINDINGS: Lungs: Unremarkable. No consolidation. Pleural space: Unremarkable. No pleural effusion. No pneumothorax. Heart/Mediastinum: Unremarkable. No cardiomegaly. Bones/joints: Some chronic left rib fractures are again present. IMPRESSION: No evidence for acute pulmonary disease. Electronically signed by: Zach Lopez On 12/02/2019 12:29:54 PM
[2019-12-02] MEDS ORDERED: GI COCKTAIL 50ML BTL(HYOSCYAMINE/MAALOX/LIDOCAINE VISCOUS)(1:3:1) PO ONE (12:30)
[2019-12-02 12:40] LABS: BASO # 0.1 10^3/uL (0.0-0.2); BASO % 1.1 % (0.0-1.0); EOS # 0.3 10^3/uL (0.0-0.5); EOS % 4.8 % (0.0-3.0); HEMATOCRIT 40.8 % (42.0-52.0); HEMOGLOBIN 13.4 g/dl (13.5-17.5); LYMPH # 1.6 10^3/uL (1.5-5.0); LYMPH % 29.3 % (24.0-44.0); MEAN CORPUSCULAR HEMOGLOBIN 29.6 pg (27.0-33.0); MEAN CORPUSCULAR HGB CONC 32.8 g/dl (32.0-36.5); MEAN CORPUSCULAR VOLUME 90.1 fl (80.0-96.0); MONO # 0.6 10^3/uL (0.0-0.8); MONO % 10.5 % (0.0-5.0); NEUTROPHILS # 2.9 10^3/uL (1.5-8.5); NEUTROPHILS % 54.1 % (36.0-66.0); PLATELET COUNT, AUTOMATED 277 10^3/uL (150-450); RED BLOOD COUNT 4.53 10^6/uL (4.30-6.10); WHITE BLOOD COUNT 5.4 10^3/uL (4.0-10.0)
[2019-12-02 12:52] LABS: INR 0.92; PROTHROMBIN TIME 12.5 SECONDS (12.5-14.3)
[2019-12-02] MEDS ORDERED: ISOVUE-370 76% 100ML VIAL As Ordered ONE (12:58)
[2019-12-02 13:28] LABS: ALBUMIN 3.6 GM/DL (3.2-5.2); BILIRUBIN,DIRECT 0.1 MG/DL (0.0-0.2); BILIRUBIN,TOTAL 0.5 MG/DL (0.2-1.0); CK-MB VALUE MASS 3.3 NG/ML (<3.6); FREE T4 0.87 NG/DL (0.76-1.46); MB/CK RELATIVE INDEX 1.92 (< OR =4); THYROID STIMULATING HORMONE 1.82 uIU/ML (0.358-3.740); TOTAL PROTEIN 6.7 GM/DL (6.4-8.2); TROPONIN I 0.02 NG/ML (< 0.10)
[2019-12-02 14:00] LABS: AMPHETAMINES LEVEL URINE NEGATIVE (NEGATIVE); BARBITURATES URINE NEGATIVE (NEGATIVE); BENZODIAZEPINES URINE NEGATIVE (NEGATIVE); CANNABINOIDS URINE NEGATIVE (NEGATIVE); COCAINE METABOLITE URINE POSITIVE (NEGATIVE); METHADONE URINE NEGATIVE (NEGATIVE); OPIATES URINE NEGATIVE (NEGATIVE); PHENCYCLIDINE URINE NEGATIVE (NEGATIVE)
--- NOTE | 2019-12-02 14:00 | REPVR ---
PROCEDURE INFORMATION: Exam: CT Angiography Chest With Contrast Exam date and time: 12/02/2019 12:58 PM Age: 59 years old Clinical indication: Chest pain; Additional info: RO dissection TECHNIQUE: Imaging protocol: Computed tomographic angiography of the chest with intravenous contrast. 3D rendering (Not supervised by radiologist): MIP and/or 3D reconstructed images were created by the technologist. Radiation optimization: All CT scans at this facility use at least one of these dose optimization techniques: automated exposure control; mA and/or kV adjustment per patient size (includes targeted exams where dose is matched to clinical indication); or iterative reconstruction. Contrast material: ISOVUE 370; Contrast volume: 75 ml; Contrast route: INTRAVENOUS (IV); COMPARISON: CT ANGIO CHEST 10/25/2018 5:53 PM FINDINGS: Pulmonary arteries: No central pulmonary embolus is identified, with evaluation dedicated to the aorta rather than the pulmonary arteries. Aorta: The thoracic aorta is nonaneurysmal and without evidence for dissection. Atherosclerotic vascular calcifications are again present. Lungs: There is a stable 6 mm nodule in the left lower lobe (image [id number]). No new nodule is identified. Mild dependent atelectasis is present bilaterally. The lungs are otherwise clear. The central airways appear patent. Pleural space: Unremarkable. No pneumothorax. No pleural effusion. Heart: Coronary artery calcifications are again present. No significant pericardial effusion. Mediastinal space: No mediastinal hematoma is identified. Lymph nodes: Unremarkable. No enlarged lymph nodes. Liver: Newly evident in the right hepatic lobe is an 8 mm arterial enhancing lesion (image [id number]). Another is present in the left lobe (image [id number]). Bones/joints: Degenerative changes again involve the spine. Soft tissues: Unremarkable. IMPRESSION: 1. Nonaneurysmal thoracic aorta without evidence for dissection. 2. 6 mm left lower lobe nodule, stable since 10/25/18, no longer requiring follow-up per Fleischner criteria. 3. Newly evident 8 mm arterial enhancing lesions in the right and left hepatic lobe, nonspecific. In a low-risk patient, this is most likely to be benign and no further follow-up is recommended. In a high-risk patient, recommend follow-up MRI in 3-6 months (or earlier if warranted by the patient's specific clinical circumstances). Electronically signed by: Zach Lopez On 12/02/2019 14:00:24 PM
[2019-12-02] MEDS ORDERED: ASPI-525 PO (16:41)
[2019-12-02 16:51] VITALS: BP 155/91
--- NOTE | 2019-12-02 19:42 | ED PDOC ---
Post-Departure Follow-Up dr kimball faxed formal report of cta angio for fu Pati Miranda MD Dec 02, 2019 19:42
--- NOTE | 2019-12-03 05:36 | ECGEPIP ---
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
--- NOTE | 2019-12-03 05:41 | ECGEPIP ---
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
--- NOTE | 2019-12-03 05:53 | ECGEPIP ---
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
== END 2019-12-02 16:55 | disposition home or self-care (01) ==
LOC: M ED 11:51
DX: R07.9 Chest pain, unspecified (principal); R00.1 Bradycardia, unspecified; F19.10 Other psychoactive substance abuse, uncomplicated; Z79.899 Other long term (current) drug therapy
CPT/HCPCS: 71045; 71275; 80047; 80076; 80307; 82550; 82553; 83690; 83880; 84439; 84443; 84484; 85025; 85610; 93005; 93041; 94760; 96360; 99284; Q9967

== ENCOUNTER → 2020-02-23 | Outpatient (CLI) | payer OTHER ==
[~2020-02-23] MED LIST changes: +ASPI325T48 PO
--- NOTE | 2020-02-23 08:47 | REP ---
INDICATION: HYPERTENSIVE HEART DISEASE WITHOUT HEART FAILURE COMPARISON: None TECHNIQUE: Real time padron scale ultrasound examination using curved array transducer followed by color Doppler evaluation of the renal vasculature. FINDINGS: The bilateral kidneys demonstrate normal echogenicity and reniform shape with increased central sinus fat suggesting chronic renal disease no hydronephrosis, nephrolithiasis, cystic or mass lesion appreciated. Right kidney measures 9.8 x 5.3 x 4.6 cm. Left kidney measures 11.0 x 5.4 x 6.0 cm. Bladder is under distended. Color Doppler evaluation relatively normal renal vasculature. Peak aortic velocity: 81.7 centimeters/second RIGHT KIDNEY Renal arterial velocity: 96.5 centimeters/second Renal-aortic ratio: 1.2 Intrarenal resistive indices: 0.48-0.69 Intrarenal acceleration times: 0.02-0.04 LEFT KIDNEY Renal arterial velocity: 62.7 centimeters/second Renal-aortic ratio: 0.8 Intrarenal resistive indices: 0.63-0.65 Intrarenal acceleration times: 0.04-0.06 IMPRESSION: 1. Kidneys suggest mild chronic medical renal disease.. 2. Doppler interegation without sonographic evidence for renal arterial stenosis. <Electronically signed by Rishi Reese > 02/23/20 0816
== END ==
LOC: M RAD 07:42
PROVIDERS: ATTEND Internal Medicine Cardiovascular Disease
DX: I11.9 Hypertensive heart disease without heart failure (principal)

== ENCOUNTER → 2020-03-23 | Outpatient (REF) | payer OTHER ==
[2020-03-23 14:30] LABS: APPEARANCE, URINE TURBID (CLEAR); BACTERIA, URINE AUTO NEGATIVE (NEGATIVE); BILIRUBIN, URINE AUTO NEGATIVE (NEGATIVE); BLOOD, URINE BLOOD NEGATIVE (NEGATIVE); COLOR, URINE YELLOW (YELLOW); GLUCOSE, URINE (UA) AUTO NEGATIVE (NEGATIVE); KETONE, URINE AUTO NEGATIVE (NEGATIVE); LEUKOCYTE ESTERASE, URINE AUTO NEGATIVE (NEGATIVE); NITRITE, URINE AUTO NEGATIVE (NEGATIVE); PROTEIN, URINE AUTO NEGATIVE (NEGATIVE); RBC, URINE AUTO 0 /HPF (0-3); SPECIFIC GRAVITY URINE AUTO 1.023 (1.002-1.035); SQUAMOUS EPITHELIAL CELL UR AU 0 /HPF (0-6); UROBILINOGEN, URINE AUTO 0.2 mg/dL (0.0-2.0); WBC, URINE AUTO 0 /HPF (0-3)
== END ==
LOC: M SMT 13:45
PROVIDERS: ATTEND Nurse Practitioner Women's Health
DX: N40.0 Benign prostatic hyperplasia without lower urinary tract symptoms (principal)

== ENCOUNTER → 2021-04-13 | Outpatient (CLI) | payer OTHER ==
[~2021-04-13] MED LIST changes: +FINA5TAB2 PO; +OMEP40CA4 PO; -OMEP40CA97 PO; +TAMS1CAP17 PO
== END ==
LOC: M LABSMTC 09:04
PROVIDERS: ATTEND Anesthesiology
DX: Z01.812 Encounter for preprocedural laboratory examination (principal); Z20.822 Contact with and (suspected) exposure to COVID-19

== ENCOUNTER 2023-11-01 13:45 | Emergency (ER) | payer MEDICARE, OTHER ==
[~2023-11-01] VITALS: Ht 177.8 cm; Wt 80.9 kg
[2023-11-01 13:46] VITALS: BP 115/65; TEMP 97.2
[2023-11-01 17:05] VITALS: O2SAT 98
[2023-11-01] MEDS: MORPHINE 2 MG/ML 1ML VIAL IM ONE (17:05)
== END 2023-11-01 18:02 | disposition left against medical advice (07) ==
LOC: M ED 13:45
DX: S83.412A Sprain of medial collateral ligament of left knee, initial encounter (principal); S93.412A Sprain of calcaneofibular ligament of left ankle, initial encounter; S86.912A Strain of unspecified muscle(s) and tendon(s) at lower leg level, left leg, initial encounter; S93.622A Sprain of tarsometatarsal ligament of left foot, initial encounter; W22.8XXA Striking against or struck by other objects, initial encounter; Y92.828 Other wilderness area as the place of occurrence of the external cause; Y93.89 Activity, other specified; Y99.0 Civilian activity done for income or pay; Z79.899 Other long term (current) drug therapy; Z53.9 Procedure and treatment not carried out, unspecified reason

== ENCOUNTER 2024-09-27 10:03 | Emergency (ER) | payer MEDICARE, OTHER ==
[~2024-09-27] VITALS: Ht 172.7 cm; Wt 80.0 kg
[2024-09-27] MEDS ORDERED: ISOVUE-370 76% 100 ML VIAL As Ordered ONE (10:23)
[2024-09-27] MEDS: ONDANSETRON 4MG 2ML VIAL IV STA (10:51)
[2024-09-27 10:52] LABS: BASO # 0.0 10^3/uL (0.0-0.2); BASO % 0.4 % (0.0-1.0); EOS # 0.1 10^3/uL (0.0-0.5); EOS % 1.0 % (0.0-3.0); LYMPH # 1.0 10^3/uL (1.5-5.0); LYMPH % 12.8 % (24.0-44.0); MONO # 0.7 10^3/uL (0.0-0.8); MONO % 8.4 % (2.0-8.0); NEUTROPHILS # 6.2 10^3/uL (1.5-8.5); NEUTROPHILS % 77.1 % (36.0-66.0); PLATELET COUNT, AUTOMATED 275 10^3/uL (150-450)
[2024-09-27] MEDS: NS 500 ML IV ONE (10:52)
[2024-09-27 11:04] LABS: INR 0.99
[2024-09-27 11:13] LABS: CK-MB VALUE MASS 8.9 NG/ML (<3.6)
[2024-09-27 11:14] LABS: ETHYL ALCOHOL (ETHANOL) < 0.003 % (0.000-0.010)
[2024-09-27 11:15] LABS: CPK CREATINE PHOSPHOKINASE 270 U/L (46-171); MB/CK RELATIVE INDEX 3.29 (< OR =4)
[2024-09-27 11:16] LABS: ALT/SGPT 41 U/L (7.0-40); AST/SGOT 34 U/L (<34); CALCIUM LEVEL 9.4 MG/DL (8.3-10.6); CARBON DIOXIDE LEVEL 28 MMOL/L (20-31); CHLORIDE LEVEL 104 MMOL/L (98-107); CREATININE FOR GFR 0.82 MG/DL (0.70-1.30); GLOMERULAR FILTRATION RATE > 90.0 (>49); POTASSIUM SERUM 4.0 MMOL/L (3.5-5.1); SALICYLATE LEVEL < 3.0 MG/DL (<30); SODIUM LEVEL 141 MMOL/L (136-145)
[2024-09-27 11:24] LABS: AMPHETAMINES LEVEL URINE NEGATIVE (NEGATIVE); BARBITURATES URINE NEGATIVE (NEGATIVE); BENZODIAZEPINES URINE NEGATIVE (NEGATIVE); CANNABINOIDS URINE NEGATIVE (NEGATIVE); METHADONE URINE NEGATIVE (NEGATIVE); OPIATES URINE NEGATIVE (NEGATIVE); PHENCYCLIDINE URINE NEGATIVE (NEGATIVE)
[2024-09-27 11:36] LABS: COCAINE METABOLITE URINE POSITIVE (NEGATIVE)
[2024-09-27 12:21] LABS: CK-MB VALUE MASS 7.7 NG/ML (<3.6)
[2024-09-27 12:22] LABS: CPK CREATINE PHOSPHOKINASE 223.0 U/L (46-171); MB/CK RELATIVE INDEX 3.45 (< OR =4)
[2024-09-27 14:10] VITALS: BP 130/70; TEMP 96.3; O2SAT 97
== END 2024-09-27 14:16 | disposition home or self-care (01) ==
LOC: M ED 10:03 → EDBD 10:03 → M ED 14:16
DX: R20.2 Paresthesia of skin (principal); R11.0 Nausea; F14.10 Cocaine abuse, uncomplicated; R00.1 Bradycardia, unspecified; K21.9 Gastro-esophageal reflux disease without esophagitis; F32.A Depression, unspecified; M50.30 Other cervical disc degeneration, unspecified cervical region; Z79.899 Other long term (current) drug therapy
CPT/HCPCS: 70450; 70496; 70498; 71045; 80047; 80048; 80076; 80143; 80307; 82077; 82550; 82553; 83605; 83735; 84443; 84484; 85025; 85610; 85730; 93005; 93041; 94760; 96361; 96374; 96375; 99285; J1100; J2405; Q9967

== ENCOUNTER 2024-10-27 07:56 | Day surgery (SDC) | payer MEDICARE, OTHER ==
[~2024-10-27] VITALS: Ht 177.8 cm; Wt 78.9 kg
[~2024-10-27 07:56] MED LIST changes: +ERGO500029 PO; +LIDOCAINE 2% 100 MG/5 ML SDV (FOR ANES.) As Ordered ONE; +OMEGCAP4 PO; +QUET50TA4 PO; +THERTAB52 PO
[2024-10-27 08:47] VITALS: TEMP 98.4
[2024-10-27 09:08] VITALS: BP 115/62; O2SAT 99
== END 2024-10-27 09:25 | disposition home or self-care (01) ==
LOC: M OPP 07:56
PROVIDERS: ATTEND Internal Medicine Gastroenterology
DX: Z86.0101 Personal history of adenomatous and serrated colon polyps (principal)